=== PATIENT | male | born 1960 | race Caucasian/White ===

== ENCOUNTER 2019-03-16 13:23 | Emergency (ER) | payer OTHER ==
[2019-03-16 13:58] VITALS: PULSE 66; TEMP 98.6; BMI 39.9
--- NOTE | 2019-03-16 15:45 | PDOC ---
History of Present Illness - General Chief Complaint: Pain, Acute Stated Complaint: PAIN History Source: Patient Exam Limitations: No Limitations - History of Present Illness Travel History: No Initial Comments: 03/16/19 15:01 59-year-old male presents to ED with complaints of left testicular pains noted last night after showering has continued to worsen since then causing even pain with sitting. Patient denies any recent change in activity recent injury to the area, penile discharge, dysuria, fever, chills or radiation of pain. Patient states does have an enlarged prostate but has no difficulty urinating Timing/Duration: reports: getting worse Quality: reports: mild Abdominal Pain Onset Location: reports: other Pain Radiation: reports: no radiation Aggravating Factors: improves with: None Alleviating Factors: improves with: None Past History - Travel Traveled outside of the country in the last 30 days: No Close contact w/someone who was outside of country & ill: No - Past Medical History Allergies/Adverse Reactions: Allergies Allergy/AdvReac Type Severity Reaction Status Date / Time No Known Allergies Allergy Verified 03/16/19 13:59 COPD: No HTN: Yes Hypercholesterolemia: Yes - Psycho Social/Smoking Cessation Hx Smoking History: Never smoked Hx Alcohol Use: No Drug/Substance Use Hx: No Patient Lives Alone: No Lives with/in: spouse/SO Review of Systems - Review of Systems Able to Perform ROS?: Yes Constitutional: No: Symptoms Reported HEENTM: No: Symptoms Reported Respiratory: No: Symptoms reported Cardiac (ROS): No: Symptoms Reported ABD/GI: No: Symptoms Reported : Yes: Testicular Pain Musculoskeletal: No: Symptoms Reported Integumentary: No: Symptoms Reported Endocrine: No: Symptoms Reported Hematologic/Lymphatic: No: Symptoms Reported *Physical Exam - Vital Signs Last Vital Signs Temp Pulse Resp BP Pulse Ox 98.6 F 66 19 154/78 97 03/16/19 13:55 03/16/19 13:55 03/16/19 13:55 03/16/19 13:55 03/16/19 13:55 - Physical Exam General Appearance: Yes: Nourished, Appropriately Dressed. No: Apparent Distress Respiratory/Chest: positive: Lungs Clear, Normal Breath Sounds. negative: Respiratory Distress, Accessory Muscle Use Cardiovascular: positive: Regular Rhythm, Regular Rate. negative: Murmur Male Genitalia: positive: discharge, other (Noted tender semi-mobile/soft mass to the left testicle measuring 3 x 2 cm negative Meka Jayy reflex. Negative creamesteric reflex). negative: inguinal hernia Musculoskeletal: negative: CVA Tenderness Integumentary: positive: Normal Color, Warm ED Treatment Course - RADIOLOGY Radiology Studies Ordered: Category Date Time Status SCROTUM AND CONTENTS US [US] Stat Ultrasound 03/16/19 14:57 Ordered Medical Decision Making - Medical Decision Making 03/16/19 15:04 Chief complaint: Patient with left testicular pain. Exam: Noted mass over the left testicle which was tender without erythema or increased warmth. Plan: Urinalysis urine culture and ultrasound of the scrotum and contents ordered. gc/chylamydia Discharge - Discharge Information Problems reviewed: Yes Clinical Impression/Diagnosis: Hydrocele of spermatic cord, testis, or tunica vaginalis Condition: Stable Disposition: HOME - Follow up/Referral Referrals: Martín Livingston MD [Staff Physician] - Rodolfo Gomez MD [Primary Care Provider] - - Patient Discharge Instructions Additional Instructions: Your Discharge Instructions: You must call primary care physician within 24 hours to arrange follow-up. Return to the Emergency Department with any new, persistent or worsening symptoms, for fever, chills, SOB, dizziness or any other concerning changes that may occur. Scrotal support as needed until seen by urology. - Post Discharge Activity
[2019-03-16 16:40] LABS: PH,URINE 5.5 (5.0-8.0); URINE APPEARANCE CLEAR; URINE BILIRUBIN NEGATIVE (NEGATIVE); URINE COLOR YELLOW; URINE GLUCOSE (UA) NEGATIVE (NEGATIVE); URINE KETONE NEGATIVE (NEGATIVE); URINE LEUK ESTERASE NEGATIVE (NEGATIVE); URINE NITRITE NEGATIVE (NEGATIVE); URINE PROTEIN NEGATIVE (NEGATIVE); URINE UROBILINOGEN 0.2 mg/dL (0.2-1.0)
--- NOTE | 2019-03-16 17:59 | PDOC ---
*Physical Exam - Vital Signs Last Vital Signs Temp Pulse Resp BP Pulse Ox 98.6 F 66 19 154/78 97 03/16/19 13:55 03/16/19 13:55 03/16/19 13:55 03/16/19 13:55 03/16/19 13:55 ED Treatment Course - ADDITIONAL ORDERS Additional order review: Laboratory Results 03/16/19 15:30 Urine Color Yellow Urine Appearance Clear Urine pH 5.5 Ur Specific Winston 1.022 Urine Protein Negative Urine Glucose (UA) Negative Urine Ketones Negative Urine Blood Negative Urine Nitrite Negative Urine Bilirubin Negative Urine Urobilinogen 0.2 Ur Leukocyte Esterase Negative Medical Decision Making - Medical Decision Making 03/16/19 17:56 Patient endorsed to me to follow ultrasound and urine and disposition. Patient seen and evaluated, has no complaints currently. Ultrasound shows left hydrocele and epididymal cyst. Patient has a urologist that he can follow-up Dr. Livingston. UA negative Selected Entries 03/16/19 18:22 Temperature 98.6 F Respiratory 18 Rate Blood Pressure 142/88 [Left Arm] O2 Sat by Pulse 99 Oximetry (%) Lab work was discussed with patient he remains afebrile. I discussed the physical exam findings, ancillary test results and final diagnoses with the patient. I answered all of the patient's questions. The patient was satisfied with the care received and felt comfortable with the discharge plan and treatment plan. The Patient agrees to follow up with the primary care physician within 24-72 hours. Discharge - Discharge Information Problems reviewed: Yes Clinical Impression/Diagnosis: Hydrocele of spermatic cord, testis, or tunica vaginalis Condition: Stable Disposition: HOME - Follow up/Referral Referrals: Rodolfo Gomez MD [Primary Care Provider] - Martín Livingston MD [Staff Physician] - - Patient Discharge Instructions Additional Instructions: Your Discharge Instructions: You must call primary care physician within 24 hours to arrange follow-up. Return to the Emergency Department with any new, persistent or worsening symptoms, for fever, chills, SOB, dizziness or any other concerning changes that may occur. Scrotal support as needed until seen by urology. - Post Discharge Activity
[2019-03-16 18:25] VITALS: BP 142/88
== END 2019-03-16 18:24 | disposition home or self-care (01) ==
LOC: JER 13:23
DX: N43.2 Other hydrocele (principal); I10 Essential (primary) hypertension; E78.00 Pure hypercholesterolemia, unspecified
CPT/HCPCS: 36415; 76870-TC; 81003; 87086; 87491; 87591; 99282-25

== ENCOUNTER 2021-09-09 19:56 | Emergency (ER) | payer OTHER ==
[2021-09-09 20:09] VITALS: BP 161/91; PULSE 84; RESP 18; TEMP 97.9; BMI 40.6
[2021-09-09] MEDS ORDERED: ACETAMINOPHEN 1000 MG/100 ML BAG IVPB ONE (21:05)
[2021-09-09] MEDS ORDERED: LIDOCAINE 5% TOPICAL PATCH TP ONE (21:24)
[2021-09-09] MEDS ORDERED: ACETAMINOPHEN INJECTION 100 ML IVPB ONE (21:33)
[2021-09-09] MEDS ORDERED: LIDOCAINE 5% TOPICAL PATCH ONE (21:36)
[2021-09-09] MEDS ORDERED: LIDOCAINE PATCH REMOVAL MC ONE (22:00)
[2021-09-09 22:12] LABS: BASO % 0.5 % (0-2.0); EOS % 0.7 % (0-4.5); HEMATOCRIT 41.8 % (35.4-49); HEMOGLOBIN 14.2 GM/dL (11.7-16.9); LYMPH % 25.4 % (8-40); MCH 28.4 pg (25.7-33.7); MCHC 33.9 g/dl (32.0-35.9); MEAN CELL VOLUME 83.9 fl (80-96); MEAN PLT VOLUME 8.5 fl (7.5-11.1); MONO % 5.7 % (3.8-10.2); NEUT % 67.7 % (42.8-82.8); PLATELET COUNT 221 10^3/uL (134-434); RBC 4.98 M/mm3 (4.00-5.60); WHITE BLOOD COUNT 7.6 K/mm3 (4.0-10.0)
[2021-09-09 22:18] LABS: EPI CELLS 2 /uL (0-25.1); HYALINE CASTS 0 /uL (0-3.1); PH,URINE 6.5 (5.0-8.0); URINE APPEARANCE CLEAR; URINE BACTERIA 5 /uL (0-1359); URINE BILIRUBIN NEGATIVE (NEGATIVE); URINE COLOR YELLOW; URINE GLUCOSE (UA) NEGATIVE (NEGATIVE); URINE KETONE TRACE (NEGATIVE); URINE LEUK ESTERASE NEGATIVE (NEGATIVE); URINE NITRITE NEGATIVE (NEGATIVE); URINE PROTEIN TRACE (NEGATIVE); URINE RBC 57 /uL (0-23.9); URINE UROBILINOGEN 0.2 mg/dL (0.2-1.0); URINE WBC 2 /uL (0-25.8)
[2021-09-09 22:34] LABS: ALBUMIN 4.1 g/dl (3.4-5.0); CALCIUM 9.1 mg/dL (8.5-10.1)
[2021-09-09 22:35] LABS: BLOOD UREA NITROGEN 12.9 mg/dL (7-18)
[2021-09-09 22:38] LABS: CREATININE 0.8 mg/dL (0.55-1.3)
[2021-09-09 22:39] LABS: BILIRUBIN,TOTAL 0.4 mg/dL (0.2-1); TOT PROT 7.5 g/dl (6.4-8.2)
[2021-09-09] MEDS ORDERED: FAMOTIDINE 20 MG/50 ML IVPB 20 MG/50 ML MG IVPB ONE (22:42)
[2021-09-10] MEDS ORDERED: METHOCARBAMOL 500 MG TABLET PO ONE (00:35)
[2021-09-10] MEDS ORDERED: METHOCARBAMOL 500 MG TABLET ONE (00:49)
== END 2021-09-10 01:55 | disposition home or self-care (01) ==
LOC: JER 19:56
PROC: 3E0333Z Introduction of Anti-inflammatory into Peripheral Vein, Percutaneous Approach (ICD-10-PCS; principal; 2021-09-09)
PROC: 3E033GC Introduction of Other Therapeutic Substance into Peripheral Vein, Percutaneous Approach (ICD-10-PCS; 2021-09-09)
DX: S39.012A Strain of muscle, fascia and tendon of lower back, initial encounter (principal); X50.0XXA Overexertion from strenuous movement or load, initial encounter
CPT/HCPCS: 36415; 74176-TC; 80053; 81003; 85025; 87086; 93005; 93010; 99285-25